=== PATIENT | female | born 1945 | race Caucasian/White ===

== ENCOUNTER 2017-10-30 11:34 | Inpatient (IN) | payer OTHER ==
[2017-10-16 12:49] VITALS: BMI 31.1
--- NOTE | 2017-10-29 20:56 | HP ---
Admitting History and Physical - Admission Chief Complaint: Left hip osteoarthritis x years History of Present Illness: 71 year old female presents today in regard to her left hip. Patient has a longstanding history of left hip osteoarthritis. Patient complains of pain, limited ROM, difficulty ambulating and difficulty completing activities of daily living. Patient has failed conservative treatment options including PO medications, activity modification, injections and exercise program. At this point, patient wishes to proceed with surgical intervention - left total hip arthroplasty, MAKOplasty. History Source: Patient - Past Medical History Cardiovascular: Yes: HTN, Hyperlipdemia - Past Surgical History Additional Past Surgical History: See written history and physical. - Smoking History Smoking history: Former smoker Have you smoked in the past 12 months: No If you are a former smoker, when did you quit?: 20 YEARS AGO - Alcohol/Substance Use Hx Alcohol Use: Yes (RARELY) Home Medications - Allergies Allergies/Adverse Reactions: Allergies Allergy/AdvReac Type Severity Reaction Status Date / Time Sulfa (Sulfonamide Allergy Unknown A CHILD Verified 10/16/17 12:39 Antibiotics) - Home Medications Home Medications: Ambulatory Orders Atorvastatin Ca [Lipitor] 10 mg PO DAILY 10/16/17 Letrozole 2.5 mg PO DAILY 10/16/17 Lisinopril 10 mg PO DAILY 10/16/17 Psyllium Husk (with Sugar) [Metamucil Packet] 3.4 gm PO DAILY 10/16/17 Review of Systems - Review of Systems Musculoskeletal: reports: Decreased ROM (left hip), Joint Pain (left hip) Physical Examination Constitutional: Yes: Well Nourished, No Distress Eyes: Yes: Conjunctiva Clear HENT: Yes: Atraumatic, Normocephalic Neck: Yes: Supple Cardiovascular: Yes: Regular Rate and Rhythm Respiratory: Yes: Regular Gastrointestinal: Yes: Soft ...Rectal Exam: Yes: Deferred Musculoskeletal: Yes: Joint Stiffness (left hip), Joint Swelling (left hip) Assessment/Plan 71 year old female presents today in regard to her left hip. Patient has a longstanding history of left hip osteoarthritis. Patient complains of pain, limited ROM, difficulty ambulating and difficulty completing activities of daily living. Patient has failed conservative treatment options including PO medications, activity modification, injections and exercise program. At this point, patient wishes to proceed with surgical intervention. Pros, cons, risks, benefits and alternatives of a left total hip arthroplasty, MAKOplasty was discussed with the patient at length. Patient confirms her understanding and consents to proceed with a left total hip arthroplasty - MAKOplasty.
[~2017-10-30 11:34] MED LIST: CEFAZOLIN 1 GM/D5W 1 GM/50 ML BAG IVPB ONE; CELECOXIB 200 MG CAPSULE PO ONE; GABAPENTIN 300 MG CAPSULE (FP) PO ONE; PANTOPRAZOLE 40 MG TABLET (FP) PO ONE; ROPIVICAINE 0.2%/MORPH PF/KETOROLAC - 51ML DISP.SYRINGE IA ONE; TRANEXAMIC ACID 1000 MG/10 ML VIAL IVPUSH ONE; oxyCODONE HCL 10 MG SUSTAINED ACTING TABLET PO ONE
[2017-10-30] MEDS ORDERED: PANTOPRAZOLE 40 MG TABLET (FP) ONE (12:06)
[2017-10-30] MEDS ORDERED: oxyCODONE HCL 10 MG SUSTAINED ACTING TABLET ONE (12:07)
[2017-10-30] MEDS ORDERED: GABAPENTIN 300 MG CAPSULE (FP) ONE (12:07)
[2017-10-30] MEDS ORDERED: CELECOXIB 200 MG CAPSULE ONE (12:07)
[2017-10-30] MEDS ORDERED: MIDAZOLAM HCL 2 MG/2 ML SINGLE DOSE VIAL ONE ×2 (14:03→15:23)
[2017-10-30] MEDS ORDERED: BUPIVACAINE HCL/PF (5 MG/ML) 30 ML VIAL IJ ONE ×2 (14:05→14:59)
[2017-10-30] MEDS ORDERED: DEXAMETHASONE SOD PHOSPHATE/PF 10 MG/ML SDV ONE (14:06)
[2017-10-30] MEDS ORDERED: EPINEPHrine/PF 1 MG/1 ML (1:1,000) AMPULE ONE (14:07)
[2017-10-30] MEDS ORDERED: PROMETHAZINE HCL 25 MG/1 ML VIAL IVPB PRN (14:24)
[2017-10-30] MEDS ORDERED: VANCOMYCIN 1,000 MG VIAL (RESTRICTED TO ID ONLY) ONE (14:29)
[2017-10-30] MEDS ORDERED: ceFAZolin SODIUM 1 GM VIAL ONE (14:29)
[2017-10-30] MEDS ORDERED: TRANEXAMIC ACID 1000 MG/10 ML VIAL ONE ×2 (14:29→17:03)
[2017-10-30] MEDS ORDERED: ROPIVICAINE 0.2%/MORPH PF/KETOROLAC - 51ML DISP.SYRINGE IA ONE ×3 (14:31→18:17)
[2017-10-30] MEDS ORDERED: ACETAMINOPHEN INJECTION 100 ML IVPB ONE (19:00)
[2017-10-30] MEDS ORDERED: traMADol HCL 50 MG TABLET ONE (19:01)
[2017-10-30] MEDS ORDERED: MAG HYDROX/AL HYDROX/SIMETH 30 ML UNIT-DOSE CUP PO PRN (19:14)
[2017-10-30] MEDS ORDERED: MAGNESIUM HYDROX 2400MG/30ML ORAL SUSPENSION 30 ML CUP PO PRN (19:14)
[2017-10-30] MEDS ORDERED: ONDANSETRON 4 MG/2 ML VIAL IVPUSH PRN (19:14)
[2017-10-30] MEDS: ACETAMINOPHEN 1000 MG/100 ML VIAL (NON FORMULARY) IVPB ONE (19:25)
[2017-10-30] MEDS: traMADol HCL 50 MG TABLET PO SCH (19:30)
[2017-10-30] MEDS ORDERED: LACTATED RINGERS SOLUTION 1,000 ML IV SCH (20:00)
[2017-10-30] MEDS: KETOROLAC TROMETHAMINE 30 MG/1 ML VIAL IVPUSH SCH (22:17)
[2017-10-30] MEDS: ASCORBIC ACID 500 MG TABLET (FP) PO SCH (22:17)
[2017-10-30] MEDS: SENNOSIDES/DOCUSATE COMBO (SENNA PLUS) TABLET (UD) PO SCH (22:17)
[2017-10-30] MEDS: GABAPENTIN 300 MG CAPSULE (FP) PO SCH (22:17)
[2017-10-30] MEDS: CELECOXIB 200 MG CAPSULE PO SCH (22:17)
[2017-10-31] MEDS: KETOROLAC TROMETHAMINE 30 MG/1 ML VIAL IVPUSH SCH ×3 (02:03→13:49)
[2017-10-31] MEDS: CEFAZOLIN 1 GM/D5W 1 GM/50 ML BAG IVPB SCH ×2 (02:03→10:36)
[2017-10-31] MEDS: traMADol HCL 50 MG TABLET PO SCH ×5 (02:08→23:51)
[2017-10-31] MEDS ORDERED: DEXAMETHASONE SOD PHOSPHATE 10 MG/1 ML VIAL IVPB ONE (03:00)
[2017-10-31] MEDS ORDERED: DEXAMETHASONE SOD PHOSPHATE 10 MG/1 ML VIAL ONE (05:50)
[2017-10-31] MEDS: ACETAMINOPHEN 1000 MG/100 ML VIAL (NON FORMULARY) IVPB ONE (08:12)
[2017-10-31 08:15] LABS: HEMATOCRIT 32.1 % (32.4-45.2); MCH 29.4 pg (25.7-33.7); MCHC 34.2 g/dl (32.0-36.0); MEAN CELL VOLUME 86.2 fl (80-96); MEAN PLT VOLUME 7.9 fl (7.5-11.1); PLATELET COUNT 262 K/MM3 (134-434); RBC 3.73 M/mm3 (3.60-5.2); RDW 13.2 % (11.6-15.6); WHITE BLOOD COUNT 10.4 K/mm3 (4.0-10.8)
[2017-10-31] MEDS: ASPIRIN 325 MG TABLET PO SCH (08:43)
[2017-10-31] MEDS: oxyCODONE HCL 5 MG TABLET PO PRN ×2 (08:43→14:00)
--- NOTE | 2017-10-31 09:12 | SPEC ---
DATE OF OPERATION: 10/30/2017 PREOPERATIVE DIAGNOSIS: Left hip osteoarthritis. POSTOPERATIVE DIAGNOSIS: Left hip osteoarthritis. PROCEDURE: Left total hip replacement with MAKOplasty robotic navigation. ATTENDING: Shant Toth MD PRODUCE CLERK: ISMA Barron. ANESTHESIA: Spinal plus sedation. ESTIMATED BLOOD LOSS: 200 mL. COMPLICATIONS: None. DISPOSITION: The patient was transferred to the PACU in stable condition. IMPLANTS USED: Alfredo Accolade 2 size 3 femoral component, Alfredo Tritanium 48 mm acetabular component with 25 and 38 mm acetabular screws, MDM bipolar head ball. INDICATIONS: This is a 71-year-old female who presented to the office complaining of severe left hip pain. She was seen and examined by Dr. Toth and diagnosed with severe left hip osteoarthritis. The patient was initially treated nonoperatively, but failed conservative management and continued to have severe pain and ambulatory dysfunction. She was therefore indicated for a left total hip replacement with MAKOplasty robotic navigation. The risks, benefits, and alternatives to the surgery were explained to the patient in great detail, and she elected to proceed with the surgery. DESCRIPTION OF PROCEDURE: On the day of surgery, the patient was taken to the operating room and placed on the OR table. Spinal anesthesia was administered by the anesthesiologist. The patient was then positioned in the lateral decubitus position on the table and all bony prominences were padded. An axillary roll was placed. The operative hip was then prepped and draped in the usual sterile fashion and intravenous antibiotics were given for infection prophylaxis. A surgical time-out was then performed with the team, and the patients identity, procedure, side, availability of implants, and the administration of antibiotics were confirmed. An approximately 15-cm longitudinal incision was made through the skin centered on the greater trochanter of the hip. This dissection was carried down through the subcutaneous tissues to the deep fascia. This fascia was then incised and a Cobra was placed around the inferior femoral neck. Electrocautery was used to reflect the anterior 40% of the gluteus medius and minimus starting at the musculotendinous junction and leaving a cuff for closure. This was reflected to reveal the capsule of the hip joint. An anterior capsulectomy was performed and the femoral head and neck were visualized. Grade 4 changes were noted diffusely throughout the joint. At this point, three small stab incisions were made superior to the main incision along the iliac crest. Three self-drilling Steinmann pins were then placed and the [employer] pelvic array was attached. Reference points on the limb were then entered into the robotic device and the limb length deficiency, offset, and femoral neck resection level were then calculated by the software. The hip was then dislocated with traction and external rotation. An oscillating saw was used to make the femoral neck cut at the level previously templated, and the femoral head was removed. Attention was then turned to the acetabulum. Retractors were then placed around the acetabulum and the labrum was removed. An acetabular checkpoint pin and the [employer] software were used to register the contours of the acetabulum. The acetabulum was then reamed in a single stage to the preoperatively templated size using the Garth robotic arm. The appropriately sized cup was then impacted and had solid fixation as well as the preset inclination and version of 40 and 20 degrees, respectively. A polyethylene liner was then placed in the cup. Attention was then turned back to the femur, which was externally rotated for improved visualization. A femoral neck elevator was used to present the femoral neck cut, a box osteotome was used to enter the femoral canal, and a canal finder was used to go down the femoral shaft. The Garth broaches were used sequentially until the optimal scratch fit was achieved. This correlated with the preoperatively templated size. From here, several different offset head and neck configurations were tested until excellent stability and length were obtained. These measurements were quantified using the [employer] software. All trial components were then removed, the femur was copiously irrigated, and the final components were placed. Leg length and stability were checked again and found to be excellent. Irrigation was performed again. Wound closure was started by repairing the abductor muscles with a no. 2 FiberWire stitch in a Krackow configuration passed through bone tunnels in the greater trochanter and tied over a bony bridge. This repair was then reinforced with a 0 V-Loc 180 barbed suture. Next, no. 1 Polysorb and 0 V-Loc 180 were used to close the fascia. The deep subcutaneous tissue was closed with no. 1 Polysorb sutures, and 2-0 Polysorb was used for the superficial subcutaneous tissue. The skin was closed using both 3-0 V-Loc 90 suture in a running subcuticular fashion and SwiftSet skin adhesive. The Garth array and pins were removed from the iliac crest and the stab incision sites were irrigated and closed with 4-0 Polysorb sutures and SwiftSet skin adhesive. Once this was completed, a sterile dressing was applied. The patient was then awakened and taken to the PACU in stable condition. ADDENDUM: After final components were placed, a 3-minute dilute Betadine lavage was performed. Following this, the wound was thoroughly irrigated with normal saline via pulsatile lavage, and wound closure was begun. SHANT TOTH M.D. [id number]
[2017-10-31 09:14] LABS: ANION GAP 5 (8-16); BLOOD UREA NITROGEN 24 mg/dl (7-18); CALCIUM 8.3 mg/dl (8.4-10.2); CHLORIDE 100 mmol/L (98-107); CO2 25 mmol/L (22-28); GLUCOSE,RANDOM 164 mg/dl (74-106); POTASSIUM 4.8 mmol/L (3.5-5.1); SODIUM 130 mmol/L (136-145)
--- NOTE | 2017-10-31 09:36 | PN ---
Progress Note (short form) - Note Progress Note: Anesthesia Post-Op Note Pt s/p left THR with Dr. Baltazar on 10/30/17. Pt received PNB + Spinal + MAC. Reports pain controlled. OOB to chair and ambulating with PT. Tolerating PO diet. Vital Signs Temperature 97.5 F L 10/30/17 22:00 Pulse Rate 73 10/31/17 06:00 Respiratory Rate 18 10/31/17 06:00 Blood Pressure 142/44 10/31/17 06:00 O2 Sat by Pulse Oximetry (%) 100 10/31/17 06:00 Continue ISS. Encourage ambulation. Bowel regimen.
[2017-10-31] MEDS: LETROZOLE 2.5 MG TABLET (FP) PO SCH (10:41)
[2017-10-31] MEDS: GABAPENTIN 300 MG CAPSULE (FP) PO SCH ×2 (11:37→21:30)
[2017-10-31] MEDS: LISINOPRIL 10 MG TABLET (FP) PO SCH (11:37)
[2017-10-31] MEDS: SENNOSIDES/DOCUSATE COMBO (SENNA PLUS) TABLET (UD) PO SCH ×2 (11:37→21:30)
[2017-10-31] MEDS: CELECOXIB 200 MG CAPSULE PO SCH ×2 (11:37→21:30)
[2017-10-31] MEDS: ASCORBIC ACID 500 MG TABLET (FP) PO SCH ×2 (11:37→21:30)
[2017-10-31] MEDS: PANTOPRAZOLE 40 MG TABLET (FP) PO SCH (11:37)
[2017-10-31] MEDS: MULTIVITAMINS (DAILY MVI) TABLET (FP) PO SCH (11:38)
[2017-10-31] MEDS ORDERED: ATORVASTATIN CA 10 MG TABLET (FP) PO SCH (22:00)
--- NOTE | 2017-10-31 22:16 | PN ---
Progress Note (short form) - Note Progress Note: Pt seen and examined. Doing Well. AVSS Selected Entries 10/31/17 10/31/17 14:00 18:00 Temperature 97.6 F Pulse Rate 72 Respiratory 19 Rate Blood Pressure 126/36 O2 Sat by Pulse 99 Oximetry (%) Laboratory Tests 10/31/17 10/31/17 08:00 08:47 WBC 10.4 Hgb 11.0 Hct 32.1 L Plt Count 262 Sodium 130 L Potassium 4.8 Chloride 100 Carbon Dioxide 25 Anion Gap 5 L BUN 24 H Creatinine 1.0 Creat Clearance w eGFR 54.81 Random Glucose 164 H Calcium 8.3 L NAD c/d/i NVID A/P s/p L JOSE MANUEL CARMEN D/C home in AM after PT
--- NOTE | 2017-10-31 22:23 | DS ---
Physical Examination Vital Signs: Vital Signs Temperature 97.6 F 10/31/17 18:00 Pulse Rate 72 10/31/17 18:00 Respiratory Rate 19 10/31/17 18:00 Blood Pressure 126/36 10/31/17 18:00 O2 Sat by Pulse Oximetry (%) 99 10/31/17 14:00 Labs: CBC, BMP 10/31/17 08:00 10/31/17 08:47 Discharge Summary Reason For Visit: LEFT HIP OSTEOARTHRITIS Current Active Problems Unilateral primary osteoarthritis, left hip (Acute) Procedures: Principal: left yany melani Hospital Course: Admitted for elective surgery. Procedure performed without complications. Pt received postoperative antibiotic prophylaxis and DVT ppx. Ambulated with physical therapy. Stable for discharge home with outpatient followup. Condition: Stable - Instructions Diet, Activity, Other Instructions: Dr Baltazar - Hip Replacement Instructions Keep the Aquacel dressing on until removed by Dr. Baltazar in 14 days - it is antibacterial and waterproof and you can shower with it on. Call the office for a follow-up appointment with Dr. Baltazar on FridayNovember 14. [phone] Baltazar will be out of town next week but his partners, Drs. Bravo and Shaquille will be in the office covering if there are any issues. Take one Aspirin 325mg daily for 6 weeks to prevent blood clots in your legs. Take one Pantoprazole 40mg daily for 6 weeks to protect against heartburn and ulcers. Take Cephalexin (antibiotic) 3x/day for 10 days to help prevent skin infection. Take Celebrex 200mg twice daily for 30 days to reduce swelling and inflammation. Take a multivitamin, stool softener and extra Vitamin C supplement daily. For pain: *Mild pain (1-3/10): Take 1 Tramadol tablet every 4 hours as needed. Moderate pain (4-6/10): Take 1 Tramadol tablet and 1 Hydrocodone tablet every 4 hours as needed. Severe pain (7-10/10): Take 1 Tramadol tablet and 2 Hydrocodone tablets every 4 hours as needed. Activity: You can put as much weight on the operative leg as you want. For the first 6 weeks, all you need to do is walk around the house, go up/down stairs, and sit down/get up. After 6 weeks when everything is healed (and bone has grown into the implant) you will be sent for more intensive outpatient physical therapy. Always use a walker or cane for balance and to prevent falls. Expect to see swelling / bruising from the operative site all the way down to your toes. Wear the Compression stocking on the operative side during the day to minimize how much swelling there is in your foot/ankle. Don't wear the stocking at night. You don't have to wear the stocking on the other side. Disposition: [facility]/HOME HEALTH CARE - Home Medications Comprehensive Discharge Medication List: Ambulatory Orders Atorvastatin Ca [Lipitor] 10 mg PO DAILY 10/16/17 Letrozole 2.5 mg PO DAILY 10/16/17 Lisinopril 10 mg PO DAILY 10/16/17 Psyllium Husk (with Sugar) [Metamucil Packet] 3.4 gm PO DAILY 10/16/17 Ascorbic Acid [Vitamin C -] 500 mg PO BID tablet 10/31/17 Aspirin [ASA -] 325 mg PO DAILY@0800 tablet 10/31/17 Celecoxib [CeleBREX -] 200 mg PO BID #60 capsule 10/31/17 Cephalexin Monohydrate [Keflex -] 500 mg PO TID #30 capsule 10/31/17 Hydrocodone/Acetaminophen [Hydrocodone-Acetamin 5-325 mg] 1 - 2 tab PO Q4H PRN # 45 tablet MDD 8 10/31/17 Multivitamins [Multivit ([facility] Formul[facility])] 1 tab PO DAILY tab 10/31/17 Pantoprazole Sodium [Protonix -] 40 mg PO DAILY #40 tablet.ec 10/31/17 Sennosides/Docusate Sodium [Pericolace -] 1 tablet PO BID tablet 10/31/17 traMADol HCL [Ultram -] 50 mg PO Q4H PRN #42 tablet MDD 6 10/31/17
[2017-11-01] MEDS: traMADol HCL 50 MG TABLET PO SCH ×2 (06:20→11:21)
[2017-11-01 06:36] VITALS: BP 110/55; PULSE 75; TEMP 98
[2017-11-01] MEDS: ASPIRIN 325 MG TABLET PO SCH (08:32)
[2017-11-01 09:15] LABS: HEMATOCRIT 30.8 % (32.4-45.2); HEMOGLOBIN 10.4 GM/dl (10.7-15.3); MCH 29.5 pg (25.7-33.7); MCHC 33.8 g/dl (32.0-36.0); MEAN CELL VOLUME 87.2 fl (80-96); MEAN PLT VOLUME 8.1 fl (7.5-11.1); PLATELET COUNT 256 K/MM3 (134-434); RBC 3.54 M/mm3 (3.60-5.2); RDW 13.4 % (11.6-15.6); WHITE BLOOD COUNT 7.8 K/mm3 (4.0-10.8)
[2017-11-01] MEDS: PANTOPRAZOLE 40 MG TABLET (FP) PO SCH (09:51)
[2017-11-01] MEDS: MULTIVITAMINS (DAILY MVI) TABLET (FP) PO SCH (09:51)
[2017-11-01] MEDS: SENNOSIDES/DOCUSATE COMBO (SENNA PLUS) TABLET (UD) PO SCH (09:51)
[2017-11-01] MEDS: LISINOPRIL 10 MG TABLET (FP) PO SCH (09:51)
[2017-11-01] MEDS: ASCORBIC ACID 500 MG TABLET (FP) PO SCH (09:51)
[2017-11-01] MEDS: LETROZOLE 2.5 MG TABLET (FP) PO SCH (09:51)
[2017-11-01] MEDS: GABAPENTIN 300 MG CAPSULE (FP) PO SCH (09:51)
[2017-11-01] MEDS: CELECOXIB 200 MG CAPSULE PO SCH (09:51)
--- NOTE | 2017-11-03 14:50 | PATH ---
Surgical Pathology Report Patient Name: LOLLY MCKAY Med. Rec. #: [id number] /Age/Gender: 1945 (Age: 71) / F Account: [id number] Location: [facility] Taken: 10/30/2017 Received: 10/30/2017 Reported: 11/03/2017 Physicians: Maurizio Baltazar M.D. Specimen(s) Received LEFT FEMORAL HEAD Clinical History Left hip osteoarthritis Final Diagnosis FEMORAL HEAD, LEFT, TOTAL HIP REPLACEMENT: DEGENERATIVE JOINT DISEASE. Electronically Signed Linn Clifton M.D. Gross Description Received in formalin, labeled "left femoral head," is a 4.3 x 4.3 x 3.7 cm. femoral head with a a 0.8 cm in length portion of femoral neck attached. The margin of resection is smooth. There is a 0.5 cm greatest dimension area of eburnation present. The remaining articular surface is ramirez-yellow and focally granular. The underlying trabecular bone is yellow and hard. A sales representative rural power section is submitted in one cassette, following decalcification. 10/31/2017 [facility]10/31/2017
== END 2017-11-01 12:43 | disposition home health service (06) | DRG 470 ==
LOC: FM/S 11:34
PROVIDERS: ADMIT Student in an Organized Health Care Education/Training Program; ATTEND Student in an Organized Health Care Education/Training Program
PROC: 0SRB0JZ Replacement of Left Hip Joint with Synthetic Substitute, Open Approach (ICD-10-PCS; principal; 2017-10-31)
PROC: 8E0W0CZ Robotic Assisted Procedure of Trunk Region, Open Approach (ICD-10-PCS; 2017-10-31)
DX: M16.12 Unilateral primary osteoarthritis, left hip (principal); E78.5 Hyperlipidemia, unspecified; I10 Essential (primary) hypertension; Z87.891 Personal history of nicotine dependence
CPT/HCPCS: 36415; 73502-TC-LT-FY; 80048; 85027; 88304-TC; 88311-TC; 94760; 97116-GP; 97162-GP; J0131; J1100